=== PATIENT | male | born 1935 | race African-American/Black ===

== ENCOUNTER 2017-11-26 22:37 | Emergency (ER) | payer MEDICARE, MEDICAID ==
[~2017-11-26] VITALS: Ht 167.6 cm; Wt 71.0 kg
[~2017-11-26 22:37] MED LIST: ASPI-867 PO; ATOR-2 PO; MIRT15TA6 PO; NAPR-677 PO; TRIA1TAB94 PO; [UNRECOGNIZED DRUG - CODE] TP
[2017-11-26] MEDS ORDERED: LIDOCAINE HCL 1% 20ML VIAL (Pyxis) INJ MC ONE (23:45)
[2017-11-27] MEDS ORDERED: LIDOCAINE HCL/PF 1% 10 MG/ML 5ML VIAL IJ NR (00:30)
[2017-11-27] MEDS ORDERED: DIATR MEGLU/DIATRIZOATE SOLN 30ML ONE (02:16)
[2017-11-27 05:42] VITALS: BP 166/77
== END 2017-11-27 05:55 ==
LOC: ER 22:42
DX: Z43.1 Encounter for attention to gastrostomy (principal); E78.00 Pure hypercholesterolemia, unspecified; Z88.0 Allergy status to penicillin; Z79.82 Long term (current) use of aspirin; Z79.899 Other long term (current) drug therapy
CPT/HCPCS: 43760; 74018; 99285; J3490; Q9963

== ENCOUNTER 2017-12-15 00:38 | Emergency (ER) | payer MEDICARE, MEDICAID ==
[~2017-12-15] VITALS: Ht 175.3 cm; Wt 64.0 kg
[2017-12-15] MEDS ORDERED: BACITRACIN ZINC OINT UDPKT TOP ONE (01:15)
[2017-12-15] MEDS ORDERED: LIDOCAINE HCL 1% 20ML VIAL (Pyxis) INJ MC ONE (01:15)
[2017-12-15] MEDS ORDERED: LIDOCAINE HCL/PF 1% 10 MG/ML 5ML VIAL IJ SCH (01:16)
[2017-12-15] MEDS ORDERED: DIATR MEGLU/DIATRIZOATE SOLN 120ML ONE (02:01)
[2017-12-15 04:43] VITALS: BP 142/92
== END 2017-12-15 04:49 | disposition home or self-care (01) ==
LOC: ER 00:38
DX: K94.23 Gastrostomy malfunction (principal); E78.00 Pure hypercholesterolemia, unspecified; I10 Essential (primary) hypertension; I73.9 Peripheral vascular disease, unspecified; G30.9 Alzheimer's disease, unspecified; F02.80 Dementia in other diseases classified elsewhere, unspecified severity, without behavioral disturbance, psychotic disturbance, mood disturbance, and anxiety; Z79.82 Long term (current) use of aspirin; Z86.73 Personal history of transient ischemic attack (TIA), and cerebral infarction without residual deficits; Z88.0 Allergy status to penicillin
CPT/HCPCS: 43760; 74018; 99284; J3490; Q9963